=== PATIENT | female | born 1940 | race Caucasian/White ===

== ENCOUNTER 2016-10-21 06:26 | Inpatient (IN) ==
[2016-10-21] MEDS ORDERED: 0.9 % Sodium Chloride 1,000 ML IVC ONE (06:33)
--- NOTE | 2016-10-21 06:36 | Emergency Department Note ---
Disposition Clinical Impression: Dehydration Disposition: Admitted As Inpatient Condition: Undetermined Time of Disposition: 08:49 General Adult HPI - General Chief complaint: ED General Medical Stated complaint: body stiffened when getting pt up Time Seen by Provider: 10/21/16 06:30 Nursing Notes Reviewed: Yes Vital Signs Reviewed: Yes - History of Present Illness HPI Narrative: Patient is a 76-year-old female who has underlying dementia. She was brought in from local care home by squad due to low blood pressure. Story is staff got her up to take her to the restroom her body stiffened up and they lowered her to a chair and checked her blood pressure which was found to be low. care home states paperwork has a DNR signed but not signed by physician. Case was discussed with her primary care provider who states patient is a DO NOT RESUSCITATE comfort care only. He is unsure why paperwork is not with the chart. Case was also discussed with her son who is power of patent attorney. He will send a copy of the DO NOT RESUSCITATE form he states his mom does not remember to drink enough water. And he does agree she is most likely dehydrated. Pain Scale: 0 - Related Data Home Medications Medication Instructions Recorded Confirmed Multivitamin,Stress Formula/Zn 1 each PO DAILY 10/28/15 10/21/16 [Stress B with Zinc Tablet] Alprazolam [Xanax 0.25 MG Tablet] 0.125 mg PO TID 02/04/16 10/21/16 Atorvastatin Calcium [Lipitor] 20 mg PO DAILY 02/04/16 10/21/16 Melatonin 3 mg PO HS 02/04/16 10/21/16 Memantine HCl [Namenda Xr] 10 mg PO BID 02/04/16 10/21/16 Ranitidine HCl [Heartburn Relief] 150 mg PO BID 02/04/16 10/21/16 Divalproex Sodium [Depakote] 250 mg PO BID 10/21/16 10/21/16 Donepezil HCl [Aricept] 10 mg PO DAILY 10/21/16 10/21/16 Mirtazapine [Remeron] 15 mg PO DAILY 10/21/16 10/21/16 Allergies Allergy/AdvReac Type Severity Reaction Status Date / Time No Known Allergies Allergy Verified 10/21/16 06:28 All systems ED: reviewed and negative except as stated. Past Medical History - Past Medical History Medical history: Reports: dementia, GERD, hyperlipidemia, other Surgical history: Reports: other Psychiatric history: Reports: anxiety - Social History Smoking Status: Never smoker Smokeless Tobacco Status: No Alcohol use: Reports: none Drug use: Reports: none Physical Exam - General Limitations: language barrier General appearance: in no apparent distress - Head Head exam: atraumatic - Eye Eye exam: Present: normal appearance, PERRL - ENT ENT exam: normal exam - Neck Neck exam: Present: normal inspection - Chest Chest inspection: Present: normal inspection - Respiratory Respiratory exam: Present: normal lung sounds bilaterally - Cardiovascular Cardiovascular exam: Present: regular rate, normal rhythm - Abdominal Exam Abdominal exam: Present: soft, Non-Tender - Expanded Lower Extremity Exam Gait: not tested/not observed - Neurological Exam Neurological exam: Present: alert, other (Baseline dementia). Absent: oriented X3 - Psychiatric Psychiatric exam: Present: flat affect - Skin Skin exam: Present: dry, other (Tenting of skin) Course Vital Signs Temperature 96.6 F L 10/21/16 06:28 Pulse Rate 78 10/21/16 06:28 Respiratory Rate 18 10/21/16 06:28 Blood Pressure 71/35 10/21/16 06:28 O2 Sat by Pulse Oximetry 97 10/21/16 06:28 Temperature 96.6 F L 10/21/16 06:30 Pulse Rate 75 10/21/16 08:30 Respiratory Rate 18 10/21/16 08:30 Blood Pressure 73/41 10/21/16 08:30 O2 Sat by Pulse Oximetry 97 10/21/16 08:30 Oxygen Delivery Oxygen Delivery Room Air Medical Decision Making - [facility] Narrative Medical decision making narrative: Differential: Dehydration versus sepsis versus pneumonia - Radiology Data Radiology results reviewed: Yes I reviewed the patient's radiology results. ITS Impressions Chest X-Ray 10/21/16 06:31 IMPRESSION: No acute cardiopulmonary disease. D/ / 10/21/2016 08:33:22 Omer Goldstein MD / elisha Interpreting Provider: Omer Goldstein MD Head CT 10/21/16 06:31 IMPRESSION: Sequela of chronic small vessel ischemic disease and brain parenchymal atrophy. No acute intracranial abnormality is seen. D/ / 10/21/2016 08:32:54 Omer Goldstein MD / elisha Interpreting Provider: Omer Goldstien MD - EKG Data EKG #1 EKG shows normal: sinus rhythm Rate: normal Rhythm: NSR Interpretation: no acute changes, normal EKG
[2016-10-21] MEDS ORDERED: Naloxone 0.4 MG/ML INJ IVP PRN (08:43)
[2016-10-21] MEDS ORDERED: Mirtazapine 15 MG TABLET PO SCH (09:00)
[2016-10-21] MEDS ORDERED: Famotidine 20 MG TABLET PO SCH (09:00)
[2016-10-21] MEDS: Multivit/Ca/Min/Fe/FA 1 TAB TABLET PO SCH (12:02)
[2016-10-21] MEDS: Divalproex (12 HR) 250 MG TABLET PO SCH ×2 (12:02→22:21)
[2016-10-21] MEDS: 0.9 % Sodium Chloride 1,000 ML IVC SCH ×2 (12:02→21:27)
--- NOTE | 2016-10-21 19:57 | Internal Med History&Physical ---
Date of Encounter: 10/21/16 Time of Encounter: 19:54 Assessment and Plan (1) Hypotension Current visit: Yes Status: Acute Probably related to dehydration Qualifiers: Hypotension type: unspecified hypotension type Qualified Code(s): I95.9 - Hypotension, unspecified (2) Dehydration Current visit: Yes Status: Acute IV hydration (3) MARLENE (generalized anxiety disorder) Current visit: Yes Status: Acute Continue alprazolam (4) Dementia with behavioral disturbance Current visit: Yes Status: Acute Continue Namenda and Aricept and Depakote Qualifiers: Dementia type: unspecified type Qualified Code(s): F03.91 - Unspecified dementia with behavioral disturbance (5) Depression Current visit: Yes Status: Acute Continue Remeron Qualifiers: Depression Type: unspecified Qualified Code(s): F32.9 - Major depressive disorder, single episode, unspecified Internal Medicine - H&P: HPI Chief complaint: Low blood pressure per nurse Admitted From: Emergency Dept (long-term facility) Plans for Post Hospital Care: Transfer Long-Term Care History of present illness: Ms. Yip is a 76 year old female with underlying dementia presented to emergency room because of low blood pressure per the nurses at [facility]. She would not answer my questions so information was obtained from the records. Review of systems was unobtainable. Emergency room they thought that she was dehydrated, to start IV fluids and home medicines. Past Med Surg Social Fam HX - Past Medical History Medical history: arthritis, dementia (With disruptive behavior), GERD, hyperlipidemia, other (Vitamin D deficiency, ulcerative colitis) Psychiatric history: anxiety, depression - Past Surgical History Surgical History: cataract, other (Carpal tunnel release, ileostomy, tonsillectomy) - Social History Smoking Status: Never smoker Smokeless Tobacco Status: No Alcohol use: none Drug use: none - Family History Mother Living Status: Hx Family Neuromuscular Disorders: Yes Hx Family Neurologic Disorders: Yes Sister Living Status: Still Living Hx Family Neurologic Disorders: Yes Father Living Status: Internal Medicine - H&P: Meds Multivitamin,Stress Formula/Zn [Stress B with Zinc Tablet] 1 each PO DAILY 10/28 [History] Alprazolam [Xanax 0.25 MG Tablet] 0.125 mg PO TID 02/04/16 [History] Atorvastatin Calcium [Lipitor] 20 mg PO DAILY 02/04/16 [History] Melatonin 3 mg PO HS 02/04/16 [History] Memantine HCl [Namenda Xr] 10 mg PO BID 02/04/16 [History] Ranitidine HCl [Heartburn Relief] 150 mg PO BID 02/04/16 [History] Divalproex Sodium [Depakote] 250 mg PO BID 10/21/16 [History] Donepezil HCl [Aricept] 10 mg PO DAILY 10/21/16 [History] Mirtazapine [Remeron] 15 mg PO DAILY 10/21/16 [History] Allergies No Known Allergies Allergy (Verified 10/21/16 06:28) All Systems PM: Unobtainable - Constitutional Vitals: Temp Pulse Resp BP Pulse Ox 97.8 F 85 15 80/50 97 10/21/16 18:18 10/21/16 18:18 10/21/16 18:18 10/21/16 18:18 10/21/16 18:18 - Head Head exam: Present: atraumatic, normocephalic - Eye Eye exam: Present: PERRL, conjuntiva pink, sclera anicteric Pupils: Present: PERRL - Neck Neck exam general surgery: Present: supple, trachea midline. Absent: lymphadenopathy - Respiratory Respiratory exam: Present: CTAB. Absent: accessory muscle use, rales, rhonchi, wheezes - Cardiovascular Cardiovascular exam: Present: RRR, +S1, +S2. Absent: diastolic murmur, gallop, rubs, systolic murmur - GI/Abdominal GI/Abdominal exam: Present: normal bowel sounds, soft, no peritoneal signs. Absent: distended, tenderness - Extremities Exam Extremities exam: Present: warm. Absent: calf tenderness, cyanotic, pedal edema - Neurological Exam Neurological exam: Absent: facial droop, speech deficit Additional comments: She would not answer my questions - Skin Skin exam: Present: dry, intact
--- NOTE | 2016-10-21 20:10 | Electrocardiograph Report ---
[facility] Test Date: 2016-10-21 Pat Name: Rebecca Yip Department: [id number] Room: [facility] Gender: F Discharge Planner: [id number] : [id number] Requested By: Paco Ellsworth Order Number: [id number] Reading MD: Brandon Alvarez DO Measurements Intervals Black Rate: 73 P: 28 GA: 197 QRS: -75 QRSD: 83 T: 73 QT: 398 QTc: 423 Interpretive Statements Sinus rhythm Possible right ventricular conduction delay Inferior myocardial infarction, age undtermined Possible anterior myocardial infarction, age undetermined Electronically Signed On 10-21-16 20:09:21 EST by Brandon Alvarez DO
[2016-10-21] MEDS: Melatonin 3 MG TABLET PO SCH (22:21)
[2016-10-21] MEDS: Famotidine 20 MG TABLET PO SCH (22:21)
[2016-10-22] MEDS ORDERED: 0.9 % Sodium Chloride 1,000 ML IVC SCH (06:27)
[2016-10-22] MEDS ORDERED: *HR* Enoxaparin 40 MG/0.4 ML SYRINGE SQ SCH (07:00)
[2016-10-22 07:41] LABS: Basophils % 0.2 %; Hematocrit 39.2 % (35.3-44.9); Hemoglobin 12.7 g/dL (11.5-15.4); Immature Granulocytes % 0.6 % (0-4); Lymphocytes # 2.2 K/mcL (0.6-4.6); Lymphocytes % 16.1 %; Mean Corpuscular HGB Conc 32.4 g/dL (31.6-35.5); Mean Corpuscular Hemoglobin 32.2 pg (28.0-33.3); Mean Corpuscular Volume 99.2 fL (83.0-100.0); Mean Platelet Volume 10.7 fL (9.4-12.4); Monocytes # 0.8 K/mcL (0.0-1.3); Monocytes % 6.1 %; Neutrophils # 10.3 K/mcL (1.6-8.9); Platelet Count 211 K/mcL (140-400); Red Blood Count 3.95 M/mcL (3.82-4.97); Red Cell Distribution Width 14.1 % (11.5-14.5)
[2016-10-22 07:58] LABS: Prothrombin Time 10.8 Seconds (9.4-12.1)
[2016-10-22 08:25] LABS: Albumin 3.3 g/dL (3.5-5.0); Albumin/Globulin Ratio 0.9 (1.1-2.2); Bilirubin,Total 0.4 mg/dL (0.2-1.2); Calcium 9.9 mg/dL (8.6-10.8); Globulin 3.5 g/dL (2.4-3.5); Potassium 4.3 mEq/L (3.5-4.5); Total Protein 6.8 g/dL (6.0-8.3)
[2016-10-22] MEDS: Famotidine 20 MG TABLET PO SCH (10:07)
[2016-10-22] MEDS: Divalproex (12 HR) 250 MG TABLET PO SCH ×2 (10:08→20:57)
[2016-10-22] MEDS: Multivit/Ca/Min/Fe/FA 1 TAB TABLET PO SCH (10:08)
--- NOTE | 2016-10-22 12:30 | Internal Med Progress Note ---
Date of Encounter: 10/22/16 Time of Encounter: 12:20 - Assessment and plan (1) Dehydration Current Visit: Yes Status: Acute Assessment and plan: October 22. Will increase IV fluid rate and recheck labs in a.m. (2) Dementia with behavioral disturbance Current Visit: Yes Status: Acute Assessment and plan: October 22. Continue Aricept and Namenda. Qualifiers: Dementia type: unspecified type Qualified Code(s): F03.91 - Unspecified dementia with behavioral disturbance (3) Neutrophilic leukocytosis Current Visit: Yes Status: Acute Assessment and plan: October 22. We will recheck labs in a.m. - Subjective Interval history: October 22. She is nonverbal. She denies pain or dyspnea by nodding. - Constitutional Vitals: Temp Pulse Resp BP Pulse Ox 97.5 F L 72 14 65/38 98 10/22/16 10:27 10/22/16 10:27 10/22/16 10:27 10/22/16 10:27 10/22/16 10:27 Exam: She is resting comfortably in bed appears in no acute distress. Her affect is flat. Extremities show no edema. Heart is regular without murmurs gallops or ectopics. Lungs are clear anteriorly. I reviewed her medications and lab results. Internal Medicine: Result - Labs CBC & Chem 7: 10/22/16 07:29 10/22/16 07:29 Labs: Short CBC 10/22/16 Range/Units 07:29 WBC 13.4 H (4.3-11.1) K/mcL Hgb 12.7 (11.5-15.4) g/dL Hct 39.2 (35.3-44.9) % Plt Count 211 (140-400) K/mcL Neutrophils # 10.3 H (1.6-8.9) K/mcL BMP 10/22/16 07:29 Sodium 129 L Potassium 4.3 Chloride 96 L Carbon Dioxide 14 L BUN 49 H Creatinine 7.07 H Glucose 97 Calcium 9.9 Cardiac Enzymes 10/22/16 Range/Units 07:29 Troponin I 0.04 H* (0-0.03) ng/mL Liver Function 10/22/16 Range/Units 07:29 Total Bilirubin 0.4 (0.2-1.2) mg/dL AST 9 (5-34) Units/L ALT 13 (0-55) Units/L Alkaline Phosphatase 73 (38-126) Units/L Albumin 3.3 L (3.5-5.0) g/dL - ABG Interpretation ABG results: PT/INR, D-dimer PT 10.8 Seconds (9.4-12.1) 10/22/16 07:29 Consult Discharge Plan - Plan Referrals: Neto Schumacher DO [Primary Care Provider] - 1 week
[2016-10-22] MEDS: 0.9 % Sodium Chloride 1,000 ML IVC SCH (15:49)
[2016-10-22] MEDS: Melatonin 3 MG TABLET PO SCH (20:57)
[2016-10-22] MEDS: *HR* Heparin 5,000 UNIT/ML VIAL SQ SCH (20:57)
[2016-10-22] MEDS: Mirtazapine 15 MG TABLET PO SCH (20:58)
[2016-10-23] MEDS: 0.9 % Sodium Chloride 1,000 ML IVC SCH ×2 (00:56→05:23)
[2016-10-23] MEDS: *HR* Heparin 5,000 UNIT/ML VIAL SQ SCH ×2 (05:23→18:02)
[2016-10-23 10:02] LABS: Calcium 8.7 mg/dL (8.6-10.8); Potassium 3.7 mEq/L (3.5-4.5)
[2016-10-23 10:40] LABS: Basophils % 0.4 %; Hematocrit 42.3 % (35.3-44.9); Hemoglobin 13.8 g/dL (11.5-15.4); Immature Granulocytes % 0.6 % (0-4); Lymphocytes # 1.4 K/mcL (0.6-4.6); Lymphocytes % 17.7 %; Mean Corpuscular HGB Conc 32.6 g/dL (31.6-35.5); Mean Corpuscular Hemoglobin 32.1 pg (28.0-33.3); Mean Corpuscular Volume 98.4 fL (83.0-100.0); Mean Platelet Volume 10.3 fL (9.4-12.4); Monocytes # 0.8 K/mcL (0.0-1.3); Monocytes % 10.4 %; Neutrophils # 5.7 K/mcL (1.6-8.9); Platelet Count 283 K/mcL (140-400); Segmented Neutrophils % 70.9 %
[2016-10-23] MEDS: Multivit/Ca/Min/Fe/FA 1 TAB TABLET PO SCH (11:02)
[2016-10-23] MEDS: Divalproex (12 HR) 250 MG TABLET PO SCH ×2 (11:02→21:37)
--- NOTE | 2016-10-23 11:38 | Internal Med Progress Note ---
Date of Encounter: 10/23/16 Time of Encounter: 11:30 - Assessment and plan (1) Dehydration Current Visit: Yes Status: Acute Assessment and plan: October 22. Will increase IV fluid rate and recheck labs in a.m. October 23. Continue present IV rate. Check labs in a.m. (2) Dementia with behavioral disturbance Current Visit: Yes Status: Acute Assessment and plan: October 22. Continue Aricept and Namenda. October 23. Continue Aricept and Namenda. We will change Xanax to when necessary Qualifiers: Dementia type: unspecified type Qualified Code(s): F03.91 - Unspecified dementia with behavioral disturbance (3) Neutrophilic leukocytosis Current Visit: Yes Status: Acute Assessment and plan: October 22. We will recheck labs in a.m. October 23. Resolved. Continue to monitor as needed - Subjective Interval history: October 22. She is nonverbal. She denies pain or dyspnea by nodding. October 23. She is much more awake and able to converse. She denies pain or dyspnea. - Constitutional Vitals: Temp Pulse Resp BP Pulse Ox 98.5 F 78 16 62/38 94 L 10/23/16 10:14 10/23/16 10:14 10/23/16 10:14 10/23/16 10:14 10/23/16 10:14 Exam: Her affect is more bright and cheerful but still blunted. Heart is regular without murmurs gallops or ectopics. Lungs are clear anteriorly. Extremities show no edema. She has a functioning ostomy in the right lower quadrant with green loose stool present. I reviewed her medications and lab results. Internal Medicine: Result - Labs CBC & Chem 7: 10/23/16 10:35 10/23/16 10:00 Labs: Short CBC 10/23/16 Range/Units 10:35 WBC 8.1 (4.3-11.1) K/mcL Hgb 13.8 (11.5-15.4) g/dL Hct 42.3 (35.3-44.9) % Plt Count 283 (140-400) K/mcL Neutrophils # 5.7 (1.6-8.9) K/mcL BMP 10/23/16 10:00 Sodium 134 L Potassium 3.7 Chloride 108 Carbon Dioxide 9 L* BUN 52 H Creatinine 5.32 H Glucose 79 Calcium 8.7 - ABG Interpretation ABG results: PT/INR, D-dimer PT 10.8 Seconds (9.4-12.1) 10/22/16 07:29 Consult Discharge Plan - Plan Referrals: Neto Schumacher DO [Primary Care Provider] - 1 week
[2016-10-23 13:20] LABS: ABG Base Excess -9.4 mEq/L (-2.0 to 3.0); ABG HCO3 16.8 mEQ/L (21-27); ABG Oxygen Saturation 97 % (95-98); ABG PCO2 33 mmHg (35-45); ABG PH 7.32 pH Units (7.32-7.45); ABG PO2 96 mmHg (85-104); ABG TCO2 17.8 mEq/L (20-26); Blood Gas FiO2 21 %
[2016-10-23] MEDS: Melatonin 3 MG TABLET PO SCH (21:37)
[2016-10-23] MEDS: Mirtazapine 15 MG TABLET PO SCH (21:37)
[2016-10-24] MEDS: *HR* Heparin 5,000 UNIT/ML VIAL SQ SCH ×2 (06:02→19:16)
[2016-10-24] MEDS: 0.9 % Sodium Chloride 1,000 ML IVC SCH ×3 (07:00→10:02)
[2016-10-24 07:14] LABS: Calcium 8.7 mg/dL (8.6-10.8); Potassium 4.5 mEq/L (3.5-4.5)
[2016-10-24] MEDS ORDERED: Famotidine 20 MG TABLET PO SCH (09:00)
--- NOTE | 2016-10-24 09:54 | Internal Med Progress Note ---
Date of Encounter: 10/24/16 Time of Encounter: 09:45 - Assessment and plan (1) Dehydration Current Visit: Yes Status: Acute Assessment and plan: October 22. Will increase IV fluid rate and recheck labs in a.m. October 23. Continue present IV rate. Check labs in a.m. October 24. We will change IV to 0.45 normal saline and monitor labs. (2) Dementia with behavioral disturbance Current Visit: Yes Status: Acute Assessment and plan: October 22. Continue Aricept and Namenda. October 23. Continue Aricept and Namenda. We will change Xanax to when necessary Qualifiers: Dementia type: unspecified type Qualified Code(s): F03.91 - Unspecified dementia with behavioral disturbance (3) Neutrophilic leukocytosis Current Visit: Yes Status: Acute Assessment and plan: October 22. We will recheck labs in a.m. October 23. Resolved. Continue to monitor as needed (4) Metabolic acidosis Current Visit: Yes Status: Acute Assessment and plan: October 24. She appears to possibly have both increased anion gap and non- increased anion gap etiologies. Renal function continues to improve. ABG bicarbonate level was 16.8 yesterday which seems more reliable then venous CO2 level of 8. We will continue to monitor labs. - Subjective Interval history: October 22. She is nonverbal. She denies pain or dyspnea by nodding. October 23. She is much more awake and able to converse. She denies pain or dyspnea. October 24. She denies pain or dyspnea. She states she is passing urine. - Constitutional Vitals: Temp Pulse Resp BP Pulse Ox 97.6 F 87 16 63/39 93 L 10/24/16 06:34 10/24/16 06:34 10/24/16 06:34 10/24/16 06:34 10/24/16 06:34 Exam: She is resting comfortably in bed and appears in no acute distress. Her affect is flat. Heart is regular without murmurs gallops or ectopics. Lungs are clear. Abdomen is soft and nontender. Extremities show no edema. I reviewed her medications and lab results. I note she had minimal acidemia and normal lactic acid level. Internal Medicine: Result - Labs CBC & Chem 7: 10/23/16 10:35 10/24/16 06:33 Labs: Short CBC 10/23/16 Range/Units 10:35 WBC 8.1 (4.3-11.1) K/mcL Hgb 13.8 (11.5-15.4) g/dL Hct 42.3 (35.3-44.9) % Plt Count 283 (140-400) K/mcL Neutrophils # 5.7 (1.6-8.9) K/mcL BMP 10/23/16 10/24/16 10:00 06:33 Sodium 134 L 137 Potassium 3.7 4.5 Chloride 108 112 H Carbon Dioxide 9 L* 8 L* BUN 52 H 59 H Creatinine 5.32 H 3.31 H Glucose 79 63 L Calcium 8.7 8.7 - ABG Interpretation ABG results: ABG ABG pH 7.32 pH Units (7.32-7.45) 10/23/16 13:12 ABG pCO2 33 mmHg (35-45) L 10/23/16 13:12 ABG pO2 96 mmHg (85-104) 10/23/16 13:12 ABG O2 Saturation 97 % (95-98) 10/23/16 13:12 PT/INR, D-dimer PT 10.8 Seconds (9.4-12.1) 10/22/16 07:29 Consult Discharge Plan - Plan Referrals: Neto Schumacher DO [Primary Care Provider] - 1 week
[2016-10-24] MEDS: Divalproex (12 HR) 250 MG TABLET PO SCH ×2 (10:04→20:43)
[2016-10-24] MEDS: Multivit/Ca/Min/Fe/FA 1 TAB TABLET PO SCH (10:04)
[2016-10-24] MEDS: Melatonin 3 MG TABLET PO SCH (20:43)
[2016-10-25 07:02] LABS: Albumin 2.6 g/dL (3.5-5.0); Albumin/Globulin Ratio 0.8 (1.1-2.2); Bilirubin,Total 0.2 mg/dL (0.2-1.2); Calcium 8.2 mg/dL (8.6-10.8); Globulin 3.2 g/dL (2.4-3.5); Magnesium 1.6 mg/dL (1.6-2.6); Phosphorous 2.1 mg/dL (2.3-4.7); Potassium 3.6 mEq/L (3.5-4.5); Total Protein 5.8 g/dL (6.0-8.3)
[2016-10-25 07:22] LABS: Thyroid Stimulating Hormone 0.346 mcIU/mL (0.350-4.840)
[2016-10-25 07:26] LABS: Basophils % 0.2 %; Hematocrit 34.9 % (35.3-44.9); Immature Granulocytes % 0.4 % (0-4); Lymphocytes # 1.6 K/mcL (0.6-4.6); Lymphocytes % 29.4 %; Mean Corpuscular HGB Conc 34.4 g/dL (31.6-35.5); Mean Corpuscular Hemoglobin 32.1 pg (28.0-33.3); Mean Corpuscular Volume 93.3 fL (83.0-100.0); Mean Platelet Volume 10.3 fL (9.4-12.4); Monocytes # 0.6 K/mcL (0.0-1.3); Monocytes % 11.5 %; Neutrophils # 3.3 K/mcL (1.6-8.9); Platelet Count 236 K/mcL (140-400); Red Blood Count 3.74 M/mcL (3.82-4.97); Segmented Neutrophils % 58.5 %
[2016-10-25] MEDS: Divalproex (12 HR) 250 MG TABLET PO SCH ×2 (08:27→20:30)
[2016-10-25] MEDS: *HR* Heparin 5,000 UNIT/ML VIAL SQ SCH ×2 (08:27→20:36)
[2016-10-25] MEDS: Multivit/Ca/Min/Fe/FA 1 TAB TABLET PO SCH (08:27)
--- NOTE | 2016-10-25 10:20 | Internal Med Progress Note ---
Date of Encounter: 10/25/16 Time of Encounter: 10:10 - Assessment and plan (1) Dehydration Current Visit: Yes Status: Acute Assessment and plan: October 22. Will increase IV fluid rate and recheck labs in a.m. October 23. Continue present IV rate. Check labs in a.m. October 24. We will change IV to 0.45 normal saline and monitor labs. October 25. Significantly improved. Continue present regimen. Will add low- dose Lomotil to lessen output from her ileostomy. I discussed her status with her son on the phone yesterday. (2) Dementia with behavioral disturbance Current Visit: Yes Status: Acute Assessment and plan: October 22. Continue Aricept and Namenda. October 23. Continue Aricept and Namenda. We will change Xanax to when necessary October 25. Her affect is brighter. Continue present regimen Qualifiers: Dementia type: unspecified type Qualified Code(s): F03.91 - Unspecified dementia with behavioral disturbance (3) Metabolic acidosis Current Visit: Yes Status: Acute Assessment and plan: October 24. She appears to possibly have both increased anion gap and non- increased anion gap etiologies. Renal function continues to improve. ABG bicarbonate level was 16.8 yesterday which seems more reliable then venous CO2 level of 8. We will continue to monitor labs. October 25. Improved. Continue present regimen. Recheck labs in a.m. Anticipate discharge to SNF tomorrow. - Subjective Interval history: October 22. She is nonverbal. She denies pain or dyspnea by nodding. October 23. She is much more awake and able to converse. She denies pain or dyspnea. October 24. She denies pain or dyspnea. She states she is passing urine. October 25. She has no complaints. - Constitutional Vitals: Temp Pulse Resp BP Pulse Ox 98.5 F 58 16 69/43 97 10/25/16 07:15 10/25/16 07:15 10/25/16 07:15 10/25/16 07:15 10/25/16 07:15 Exam: She is lying in bed resting comfortably. Reports her appetite is improving. Her heart is regular without murmurs gallops or ectopics. Lungs are clear anteriorly. Extremities show no pitting edema. I reviewed her medications and lab results. Internal Medicine: Result - Labs CBC & Chem 7: 10/25/16 07:08 10/25/16 06:33 Labs: Short CBC 10/25/16 Range/Units 07:08 WBC 5.6 (4.3-11.1) K/mcL Hgb 12.0 D (11.5-15.4) g/dL Hct 34.9 L (35.3-44.9) % Plt Count 236 (140-400) K/mcL Neutrophils # 3.3 (1.6-8.9) K/mcL BMP 10/25/16 06:33 Sodium 139 Potassium 3.6 Chloride 112 H Carbon Dioxide 16 L BUN 41 H D Creatinine 1.20 H D Glucose 72 Calcium 8.2 L Liver Function 10/25/16 Range/Units 06:33 Total Bilirubin 0.2 (0.2-1.2) mg/dL AST 10 (5-34) Units/L ALT 8 (0-55) Units/L Alkaline Phosphatase 45 (38-126) Units/L Albumin 2.6 L D (3.5-5.0) g/dL - ABG Interpretation ABG results: ABG ABG pH 7.32 pH Units (7.32-7.45) 10/23/16 13:12 ABG pCO2 33 mmHg (35-45) L 10/23/16 13:12 ABG pO2 96 mmHg (85-104) 10/23/16 13:12 ABG O2 Saturation 97 % (95-98) 10/23/16 13:12 PT/INR, D-dimer PT 10.8 Seconds (9.4-12.1) 10/22/16 07:29 Consult Discharge Plan - Plan Referrals: Neto Schumacher DO [Primary Care Provider] - 1 week
[2016-10-25] MEDS: Diphenoxylate/Atropine 1 TAB TABLET PO SCH ×2 (12:11→20:30)
[2016-10-25] MEDS: Melatonin 3 MG TABLET PO SCH (20:29)
[2016-10-26 06:24] VITALS: BP 86/54
[2016-10-26] MEDS: *HR* Heparin 5,000 UNIT/ML VIAL SQ SCH (06:46)
[2016-10-26] MEDS: Multivit/Ca/Min/Fe/FA 1 TAB TABLET PO SCH (09:35)
[2016-10-26] MEDS: Divalproex (12 HR) 250 MG TABLET PO SCH (09:35)
[2016-10-26] MEDS: Diphenoxylate/Atropine 1 TAB TABLET PO SCH (09:35)
[2016-10-26 09:40] LABS: BUN/Creatinine Ratio 28 (6-26); Blood Urea Nitrogen 21 mg/dL (7-20); Calcium 8.1 mg/dL (8.6-10.8); Carbon Dioxide 17 mEq/L (19-29); Chloride 109 mEq/L (98-109); Glucose 62 mg/dL (70-99); Osmolality,Calculated 281 (280-300); Sodium 135 mEq/L (136-145); eGFR For African Americans > 60 (> 60); eGFR For Non-African Americans > 60 (> 60)
--- NOTE | 2016-10-26 09:57 | Discharge Summary ---
Date of Encounter: 10/26/16 Time of Encounter: 09:45 - Discharge Diagnosis (1) Dehydration Priority: Primary Status: Suspected (2) Dementia with behavioral disturbance Priority: Secondary Status: Chronic Qualifiers: Dementia type: unspecified type Qualified Code(s): F03.91 - Unspecified dementia with behavioral disturbance (3) Metabolic acidosis Priority: Secondary Status: Resolved - Discharge Medications Prescriptions: Diphenoxylate/Atropine [Lomotil 2.5 mg/0.025 mg] 1 tab PO BID #60 tablet Home Medications: Multivitamin,Stress Formula/Zn [Stress B with Zinc Tablet] 1 each PO DAILY 10/28 [History] Atorvastatin Calcium [Lipitor] 20 mg PO DAILY 02/04/16 [History] Melatonin 3 mg PO HS 02/04/16 [History] Memantine HCl [Namenda Xr] 10 mg PO BID 02/04/16 [History] Divalproex Sodium [Depakote] 250 mg PO BID 10/21/16 [History] Donepezil HCl [Aricept] 10 mg PO DAILY 10/21/16 [History] Alprazolam [Xanax 0.25 MG Tablet] 0.125 mg PO TID PRN #0 10/26/16 [Rx] Diphenoxylate/Atropine [Lomotil 2.5 mg/0.025 mg] 1 tab PO BID #60 tablet [Rx] Allergies/Adverse Reactions: Allergies No Known Allergies Allergy (Verified 10/21/16 06:28) Date of admission: 10/22/16 16:36 Primary care physician: Neto Schumacher DO - Patient Status Disposition: Transfer SNF Condition: Undetermined Overall status at discharge: patient is back to baseline - Discharge Instructions Follow Up With: Neto Schumacher DO [Primary Care Provider] - 1 week - Diet and Activity Activity: resume usual activities as tolerated Diet: advance to your usual diet Hospital course: Ms. Yip is a 76 year old female who presented to [facility] emergency room from [facility] with hypotension. Dr. Worthy saw her on October 21 and performed history and physical. I assumed care on October 22. She was given IV fluids and her medications were adjusted. She had normalization of her azotemia with BUN/ creatinine being 21 and 0.74 respectively on 10/26/2016. Estimated GFR had improved to greater than 60. Her metabolic acidosis improved with serum CO2 near normal at 17 on the day of discharge. I started her on Lomotil twice a day to lessen small bowel motility and output from her ileostomy. Her weight increased from 44.271 kg on admission to 48.807 kg at discharge. She will continue the Lomotil at discharge. Follow-up labs will be ordered for October 29. Her mental status improved significantly and she was appropriate in conversation and smiling and laughing on the day of discharge. She will be discharged back to [facility] today to follow with Dr. Schumacher. Xanax will be changed to a prn basis instead of scheduled. - Time Spent with Patient Total time spent providing and/or coordinating discharge services: - Constitutional Vitals: Temp Pulse Resp BP Pulse Ox 97.2 F L 54 16 86/54 98 10/26/16 06:22 10/26/16 06:22 10/26/16 06:22 10/26/16 06:22 10/26/16 08:53
--- NOTE | 2016-10-26 10:08 | Physician Discharge Referral ---
ExtendedCare Referral Info Transfer To: [facility] Provider in Charge: Ever Provider in Charge after Transfer: PCP (Endy) - Diagnosis (1) Dehydration Priority: Primary Status: Suspected (2) Dementia with behavioral disturbance Priority: Secondary Status: Chronic (3) Metabolic acidosis Priority: Secondary Status: Resolved Prognosis: Good Aware of Diagnosis: Patient, Family Aware of Prognosis: Patient, Family - Transfer Medications Prescriptions: Diphenoxylate/Atropine [Lomotil 2.5 mg/0.025 mg] 1 tab PO BID #60 tablet Home Medications: Multivitamin,Stress Formula/Zn [Stress B with Zinc Tablet] 1 each PO DAILY 10/28 [History] Atorvastatin Calcium [Lipitor] 20 mg PO DAILY 02/04/16 [History] Melatonin 3 mg PO HS 02/04/16 [History] Memantine HCl [Namenda Xr] 10 mg PO BID 02/04/16 [History] Divalproex Sodium [Depakote] 250 mg PO BID 10/21/16 [History] Donepezil HCl [Aricept] 10 mg PO DAILY 10/21/16 [History] Alprazolam [Xanax 0.25 MG Tablet] 0.125 mg PO TID PRN #0 10/26/16 [Rx] Diphenoxylate/Atropine [Lomotil 2.5 mg/0.025 mg] 1 tab PO BID #60 tablet [Rx] Allergies/Adverse Reactions: Allergies No Known Allergies Allergy (Verified 10/21/16 06:28) - Respiratory Orders Smoking Cessation: Smoking cessation has been advised. For more information, call the [place] Tobacco Quit Line at 4-743-SCRB-NOW. - Lab Orders Lab Orders: Other (include drug levels w/frequency) (BMP, phosphorous level on October 29.) - Rehabiliation Orders Rehab Potential: Fair - Diet Orders Regular CERTIFICATION: I certify that the transfer of the above named patient to an Extended Care Facility is necessary for the continuing treatment of the diagnosis listed. The above information is true and accurate reflection of patient's current condition. Confidential - Redisclosure prohibited without a patient's written consent.
== END 2016-10-26 11:05 ==
LOC: INPPIK 06:26 → EMEROOPIK 06:26 → INPPIK 08:58
PROVIDERS: ADMIT Family Medicine; ATTEND Internal Medicine